=== PATIENT | male | born 1995 | race Hispanic/Latino ===

== ENCOUNTER 2021-03-24 06:47 | Emergency (ER) | payer SELFPAY ==
--- NOTE | 2021-03-24 07:13 | EDPHYS ---
Physician Documentation [facility] Name: Efren Ford Age: 25 yrs Sex: Male : 1995 Arrival Date: 03/24/2021 Time: 06:52 Bed 9 Private MD: ED Physician Lisbeth Leblanc HPI: 03/24 07:11 This 25 yrs old Male presents to ER via Ambulatory with complaints of Fever, ma2 Headache, Congestion. 07:11 The patient reports fever, not measured (subjective). Onset: The symptoms/episode ma2 began/occurred gradually, 2 day(s) ago. Associated signs and symptoms: Pertinent negatives: altered mental status, chest pain, chills, cough, myalgias, runny nose, sinus drainage. Severity of symptoms: At their worst the symptoms were mild in the emergency department the symptoms are unchanged. Historical: - Allergies: 06:59 No Known Allergies; ss - Home Meds: 06:59 None [Active]; ss - PMHx: 06:59 None; ss - PSHx: 06:59 None; ss - Immunization history:: Client reports receiving the 2nd dose of the Covid vaccine, Client reports having NOT received the Covid vaccine. - Social history:: Smoking status: Patient reports the use of cigarette tobacco products, cigars. - Family history:: not pertinent. ROS: 07:11 Constitutional: Negative for fever, chills, and weight loss. ma2 07:11 All other systems are negative. Exam: 07:11 Constitutional: This is a well developed, well nourished patient who is awake, alert, ma2 and in no acute distress. Eyes: Pupils equal round and reactive to light, extra-ocular motions intact. Lids and lashes normal. Conjunctiva and sclera are non-icteric and not injected. Cornea within normal limits. Periorbital areas with no swelling, redness, or edema. ENT: Nares patent. No nasal discharge, no septal abnormalities noted. Tympanic membranes are normal and external auditory canals are clear. Oropharynx with no redness, swelling, or masses, exudates, or evidence of obstruction, uvula midline. Mucous membranes moist. Chest/axilla: Normal chest wall appearance and motion. Nontender with no deformity. No lesions are appreciated. Cardiovascular: Regular rate and rhythm with a normal S1 and S2. No gallops, murmurs, or rubs. Normal PMI, no JVD. No pulse deficits. Respiratory: Lungs have equal breath sounds bilaterally, clear to auscultation and percussion. No rales, rhonchi or wheezes noted. No increased work of breathing, no retractions or nasal flaring. Abdomen/GI: Soft, non-tender, with normal bowel sounds. No distension or tympany. No guarding or rebound. No evidence of tenderness throughout. Skin: Warm, dry with normal turgor. Normal color with no rashes, no lesions, and no evidence of cellulitis. MS/ Extremity: Pulses equal, no cyanosis. Neurovascular intact. Full, normal range of motion. Neuro: Awake and alert, GCS 15, oriented to person, place, time, and situation. Cranial nerves II-XII grossly intact. Motor strength 5/5 in all extremities. Sensory grossly intact. Cerebellar exam normal. Normal gait. Vital Signs: 06:58 BP 110 / 70; Pulse 96; Resp 15; Temp 99.8(O); Pulse Ox 98% on R/A; Weight 54.43 kg; ss Height 5 ft. 5 in. (165.10 cm); Pain 0/10; 06:58 Body Mass Index 19.97 (54.43 kg, 165.10 cm) ss MDM: 07:10 Patient medically screened. jr8 07:11 Differential diagnosis: URI, bronchitis, gastroenteritis. Data reviewed: vital signs, ma2 nurses notes, EMS record. Counseling: I had a detailed discussion with the patient and/or guardian regarding: the historical points, exam findings, and any diagnostic results supporting the discharge/admit diagnosis, the presence of at least one elevated blood pressure reading (>120/80) during this emergency department visit, lab results, radiology results, the need for outpatient follow up. Response to treatment: the patient's symptoms have markedly improved after treatment. 03/24 07:05 Order name: COVID-19/FLU A+B (Document "Date of Onset" if Symptomatic) ss Administered Medications: No medications were administered Disposition Summary: 03/24/21 07:12 Discharge Ordered Location: Home ma2 Condition: Stable ma2 Diagnosis - Cough ma2 Followup: ma2 - With: Private Physician - When: Tomorrow - Reason: Continuance of care Discharge Instructions: - Discharge Summary Sheet ma2 - Cough, Adult, [id number] ma2 Forms: - Medication Reconciliation Form ma2 - Thank You Letter ma2 - Antibiotic Education ma2 - Prescription Opioid Use ma2 Prescriptions: - Diclofenac Sodium 75 mg Oral Tablet Sustained Release - take 1 tablet by ORAL route 2 times per day; 30 tablet; Refills: 0, Product ma2 Selection Permitted - Zithromax Z-Luis Carlos 250 mg Oral Tablet - take 1 tablet by ORAL route as directed for 5 days Day 1 - take two (2) tablets ma2 one time. Day 2, 3, 4 , 5 take one (1) tablet once daily.; 6 tablet; Refills: 0, Product Selection Permitted - Medrol (Luis Carlos) 4 mg Oral Tablets, Dose Pack - take 1 tablet by ORAL route as directed - follow package instructions; 1 ma2 packet; Refills: 0, Product Selection Permitted Signatures: Dispatcher [employer] Laxmi Santos RN RN ss Roszak, Josh, PA PA jr8 Lisbeth Leblanc MD MD ma2
--- NOTE | 2021-03-24 07:13 | ER ---
Nurse's Notes [facility] Name: Efren Ford Age: 25 yrs Sex: Male : 1995 Arrival Date: 03/24/2021 Time: 06:52 Bed 9 Private MD: Diagnosis: Cough Presentation: 03/24 06:58 Chief complaint: Patient states: cough, runny nose, congestion, runny nose and headache ss that began 2 days ago. Coronavirus screen: Client presents with at least one sign or symptom that may indicate coronavirus-19. Standard/surgical mask placed on the client. Provider contacted for isolation considerations. Ebola Screen: Patient denies exposure to infectious person. Patient denies travel to an Ebola-affected area in the 21 days before illness onset. Initial Sepsis Screen: Does the patient meet any 2 criteria? No. Patient's initial sepsis screen is negative. Does the patient have a suspected source of infection? No. Patient's initial sepsis screen is negative. Risk Assessment: Do you want to hurt yourself or someone else? Patient reports no desire to harm self or others. Onset of symptoms was March 23, 2021. 06:58 Method Of Arrival: Ambulatory ss 06:58 Acuity: GINNY 4 ss Historical: - Allergies: 06:59 No Known Allergies; ss - Home Meds: 06:59 None [Active]; ss - PMHx: 06:59 None; ss - PSHx: 06:59 None; ss - Immunization history:: Client reports receiving the 2nd dose of the Covid vaccine, Client reports having NOT received the Covid vaccine. - Social history:: Smoking status: Patient reports the use of cigarette tobacco products, cigars. - Family history:: not pertinent. Screenin:19 Abuse screen: Denies threats or abuse. Denies injuries from another. Nutritional ss screening: No deficits noted. Tuberculosis screening: Never had TB. Fall Risk None identified. Assessment: 06:58 General: Appears in no apparent distress. comfortable, Behavior is calm, cooperative, ss Denies fever, feeling ill, fatigue, chills. Neuro: Level of Consciousness is awake, alert, obeys commands, Oriented to person, place, time, situation. Neuro: Reports headache. Cardiovascular: Capillary refill < 3 seconds is brisk in bilateral fingers. Respiratory: Airway is patent Respiratory effort is even, unlabored, Respiratory pattern is regular, symmetrical, Breath sounds are clear bilaterally. Respiratory: Reports cough that is. GI: Patient currently denies diarrhea, nausea, vomiting. : No signs and/or symptoms were reported regarding the genitourinary system. EENT: Reports nasal congestion nasal discharge. Derm: Skin is intact, is healthy with good turgor, Skin is dry, Skin is pink, warm \T\ dry. normal. 07:19 Reassessment: Patient appears in no apparent distress at this time. Patient and/or ss family updated on plan of care and expected duration. Pain level reassessed. Patient is alert, oriented x 3, equal unlabored respirations, skin warm/dry/pink. Vital Signs: 06:58 BP 110 / 70; Pulse 96; Resp 15; Temp 99.8(O); Pulse Ox 98% on R/A; Weight 54.43 kg; ss Height 5 ft. 5 in. (165.10 cm); Pain 0/10; 06:58 Body Mass Index 19.97 (54.43 kg, 165.10 cm) ED Course: 06:52 Patient arrived in ED. ja2 06:59 Triage completed. ss 06:59 Arm band placed on left wrist. ss 07:06 Laxmi Schwab RN is Primary Nurse. 07:10 Wilbert Mitchell PA is PHCP. jr8 07:10 Jason Pinzon MD is Attending Physician. jr8 07:11 Attending Physician role handed off by Jason Pinzon MD ma2 07:11 Lisbeth Leblanc MD is Attending Physician. ma2 07:19 Patient has correct armband on for positive identification. Bed in low position. Call ss light in reach. 07:20 No provider procedures requiring assistance completed. Patient did not have IV access ss during this emergency room visit. Administered Medications: No medications were administered Outcome: 07:12 Discharge ordered by . ma2 07:20 Discharged to home ambulatory. 07:20 Condition: good 07:20 Discharge instructions given to patient, Instructed on discharge instructions, follow up and referral plans. medication usage, Demonstrated understanding of instructions, follow-up care, Prescriptions given X 3. 07:21 Patient left the ED. Signatures: Laxmi Schwab RN RN Wilbert Mitchell PA PA Lisbeth Anguiano MD MD ma2 Gem Gilbert
[2021-03-24 07:27] VITALS: BP 110/70; TEMP 99.8; O2SAT 98
[2021-03-24 09:02] LABS: SARS-COV-2 RT PCR NEGATIVE (NEGATIVE)
== END 2021-03-24 07:21 | disposition home or self-care (01) ==
LOC: ER 06:47
DX: J10.1 Influenza due to other identified influenza virus with other respiratory manifestations (principal); Z20.822 Contact with and (suspected) exposure to COVID-19; Z72.0 Tobacco use
CPT/HCPCS: 0240U; 99282

== ENCOUNTER 2022-06-17 17:38 | Emergency (ER) | payer BC ==
[2022-06-17] MEDS ORDERED: IBUPROFEN 400 MG TAB ONE (18:20)
[2022-06-17] MEDS ORDERED: IBUPROFEN 200 MG TAB PO ONE (18:20)
--- NOTE | 2022-06-17 20:01 | RAD REPORT ---
EXAM DESCRIPTION: RAD - Shoulder Left 2 View - 06/17/2022 7:28 pm CLINICAL HISTORY: PAIN COMPARISON: No comparisons TECHNIQUE: Internal and external rotation views of the left shoulder were obtained. FINDINGS: There is no fracture or dislocation. AC joint is normal in appearance. No acute or suspici ous findings. IMPRESSION: Negative two-view left shoulder examination.
--- NOTE | 2022-06-17 20:01 | RAD REPORT ---
EXAM DESCRIPTION: RAD - Ribs Left - 06/17/2022 7:28 pm CLINICAL HISTORY: PAIN COMPARISON: CHEST SINGLE VIEW dated 05/02/2013 TECHNIQUE: Left ribs, 2 views. FINDINGS: No displaced rib fracture is evident. No aggressive rib lesion. No underlying pneumothorax, effusion, infiltrate or pulmonary contusion. IMPRESSION: Negative left rib series.
--- NOTE | 2022-06-17 20:04 | EDPHYS ---
Physician Documentation [facility] Name: Efren Ford Age: 26 yrs Sex: Male : 1995 Arrival Date: 06/17/2022 Time: 17:42 Bed 11 Private MD: ED Physician Harshal Garcia Historical: - Allergies: 06/17 17:51 No Known Allergies; ll1 - PMHx: 17:51 None; ll1 - PSHx: 17:51 None; ll1 - Immunization history:: Client reports having NOT received the Covid vaccine. - Social history:: Smoking status: Patient reports the use of cigarette tobacco products, smokes one-half pack cigarettes per day. Vital Signs: 17:52 BP 120 / 80; Pulse 78; Resp 16; Temp 98.7; Pulse Ox 98% ; Weight 49.9 kg; Height 5 ft. ll1 5 in. ; Pain 7/10; 17:52 Body Mass Index 18.30 (49.90 kg, 165.1 cm) ll1 17:52 Pain Scale: Adult ll1 MDM: 17:56 Patient medically screened. cp 06/17 19:54 Order name: Sling cp 06/17 18:00 Order name: XRAY Shoulder LEFT 2 view cp 06/17 18:00 Order name: XRAY Ribs LEFT cp Administered Medications: 18:17 Not Given (Patient Refused): Ibuprofen PO 600 mg PO once ll1 Disposition Summary: 06/17/22 20:03 Discharge Ordered Location: Home cp Problem: new cp Symptoms: are unchanged cp Condition: Stable cp Diagnosis - Strain of muscle and tendon of front wall of thorax, initial encounter cp Followup: cp - With: Private Physician - When: 2 - 3 days - Reason: Worsening of condition Discharge Instructions: - Discharge Summary Sheet cp - Muscle Strain cp - RICE Therapy for Routine Care of Injuries cp - Thoracic Strain cp Forms: - Medication Reconciliation Form cp - Thank You Letter cp - Antibiotic Education cp - Prescription Opioid Use cp Prescriptions: - Ibuprofen 600 mg Oral Tablet - take 1 tablet by ORAL route every 8 hours As needed take with food; 30 tablet; cp Refills: 0, Product Selection Permitted Signatures: Dispatcher [employer] EDMA Barry Lagos PA PA cp Lewis, Lynsay RN RN ll1
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
[2022-06-18 00:51] VITALS: BP 120/80; TEMP 98.7; O2SAT 98
== END 2022-06-17 20:32 | disposition home or self-care (01) ==
LOC: ER 17:38
DX: S20.212A Contusion of left front wall of thorax, initial encounter (principal); F17.210 Nicotine dependence, cigarettes, uncomplicated
CPT/HCPCS: 99282

== ENCOUNTER 2022-09-08 13:27 | Emergency (ER) | payer BC, SELFPAY ==
--- OUTSIDE RECORDS SUMMARY | 2022-09-08 13:30 | XMS REPORT | Continuity of Care Document ---
:1995 Author Organization [facility] t Address [address] [place] [address] Care Team Providers Name Role Phone Pcp, Patient Does Not Have A Primary Care Physician [id number] ZEESHAN COHEN Attending Clinician Unavailable Zeeshan Cohen MD Attending Clinician Payers Payer Name Policy Type Policy Number Effective Date Expiration Date S ource [facility] - [id number] 2021 00:00:00 OUT OF STATE Problems This patient has no known problems. Allergies, Adverse Reactions, Alerts Allergy Allergy Status Severity Reaction(s) Onset Inactive Treating Comm ents Source Name Type Date Date Clinician NO KNOWN Drug Active Univers ALLERGIE Class ity of S [facility] Social History Social Habit Start Date Stop Date Quantity Comments Source History of Cigarette Smoker Universi ty of tobacco use [facility] Exposure to 2022-07-29 2022-08-08 Not sure University of SARS-CoV-2 00:00:00 12:55:00 [facility] (event) [place] Tobacco use and 2022-08-08 2022-08-08 Smokeless tobacco Un iversity of exposure 00:00:00 00:00:00 non-user [facility] Sex Assigned At [birth year] Universit y of 00:00:00 00:00:00 [facility] Smoking Status Start Date Stop Date Source Smokes tobacco daily 2022-08-08 00:00:00 [facility] Medications This patient has no known medications. Vital Signs Vital Name Observation Time Observation Value Comments Source Systolic blood 2022-08-08 18:08:00 106 mm[Hg] Univer sity of pressure [facility] Diastolic blood 2022-08-08 18:08:00 70 mm[Hg] Unive rsity of pressure [facility] Heart rate 2022-08-08 18:08:00 68 /min Universi [facility] Body temperature 2022-08-08 18:08:00 36.78 [facility] Respiratory rate 2022-08-08 18:08:00 20 /[facility] height 2022-08-08 18:08:00 165.1 cm [facility] Body weight 2022-08-08 18:08:00 48.626 kg [facility] BMI 2022-08-08 18:08:00 17.84 kg/m2 [facility] Oxygen saturation in 2022-08-08 18:08:00 99 /min [facility] Arterial blood by [facility] Pulse oximetry Branch Procedures This patient has no known procedures. Encounters Start End Encounter Admission Attending Care Care Encounter Source Date/Time Date/Time Type Type Clinicians Facility Department ID 2022-08-08 2022-08-08 Outpatient R [facility] [id number] [facility] 13:00:00 14:05:45 ZEESHAN negron [facility] 2022-08-08 2022-08-08 Office [facility] [id number] [facility] 13:00:00 14:05:45 Visit Zeeshan STRONG [id number] i ty of [place] [id number] [facility] [id number] Id dical NAL [address] BUILDING Results This patient has no known results.
--- NOTE | 2022-09-08 15:22 | ER ---
Nurse's Notes [facility] Name: Efren Ford Age: 27 yrs Sex: Male : 1995 Arrival Date: 09/08/2022 Time: 13:27 Bed Treatment Private MD: Diagnosis: Impacted cerumen, right ear Presentation: 09/08 13:31 Chief complaint: Patient states: RIGHT EAR PAIN x1.5 DAY. Coronavirus screen: At this bp time, the client does not indicate any symptoms associated with coronavirus-19. Ebola Screen: No symptoms or risks identified at this time. Initial Sepsis Screen: Does the patient meet any 2 criteria? No. Patient's initial sepsis screen is negative. Does the patient have a suspected source of infection? No. Patient's initial sepsis screen is negative. Risk Assessment: Do you want to hurt yourself or someone else? Patient reports no desire to harm self or others. Onset of symptoms is unknown. 13:31 Method Of Arrival: [employer] bp 13:31 Acuity: GINNY 4 bp Triage Assessment: 13:32 General: Appears uncomfortable, Behavior is cooperative, appropriate for age. Pain: bp Complains of pain in right ear. EENT: Reports pain in right ear. Neuro: No deficits noted. Cardiovascular: No deficits noted. Respiratory: No deficits noted. GI: No signs and/or symptoms were reported involving the gastrointestinal system. : No signs and/or symptoms were reported regarding the genitourinary system. Derm: No deficits noted. Musculoskeletal: No deficits noted. Historical: - Allergies: 13:32 No Known Allergies; bp - Home Meds: 13:32 None [Active]; bp - PMHx: 13:32 None; bp - Immunization history:: Adult Immunizations up to date. - Social history:: Smoking status: . Screenin:[address] [facility] ED Fall Risk Assessment (Adult) History of falling in the last 3 months, mb9 including since admission No falls in past 3 months (0 pts) Confusion or Disorientation No (0 pts) Intoxicated or Sedated No (0 pts) Impaired Gait No (0 pts) Mobility Assist Device Used No (0 pt) Altered Elimination No (0 pt) Score/Fall Risk Level 0 - 2 = Low Risk Oriented to surroundings, Maintained a safe environment, Educated pt \T\ family on fall prevention, incl call for assistance when getting out of bed. Abuse screen: Denies threats or abuse. Nutritional screening: No deficits noted. Tuberculosis screening: No symptoms or risk factors identified. Assessment: 15:26 Reassessment: see triage assessment. mb9 Vital Signs: 13:31 BP 121 / 67; Pulse 75; Resp 16; Temp 98; Pulse Ox 99% ; bp ED Course: 13:31 Patient arrived in ED. bp 13:32 Triage completed. bp 13:33 Arm band placed on. bp 14:07 Marisela Goldstein FNP-C [facility] kb 14:07 Jason Pinzon MD is Attending Physician. kb 15:26 No provider procedures requiring assistance completed. Patient did not have IV access mb9 during this emergency room visit. Administered Medications: No medications were administered Outcome: 15:22 Discharge ordered by MD. kb 15:26 Discharged to [employer] mb9 15:26 Condition: stable 15:26 Discharge instructions given to patient, Instructed on discharge instructions, follow up and referral plans. Demonstrated understanding of instructions, follow-up care. 15:27 Patient left the ED. mb9 Signatures: Marisela Goldstein FNP-C FNP-Ckb Peltier, Brian, RN RN Kendra Soares RN RN [id number]
--- NOTE | 2022-09-08 15:22 | EDPHYS ---
Physician Documentation [facility] Name: Efren Ford Age: 27 yrs Sex: Male : 1995 Arrival Date: 09/08/2022 Time: 13:27 Bed Treatment Private MD: ED Physician Jason Pinzon HPI: 09/08 13:43 This 27 yrs old Male presents to ER via [employer] with complaints of Ear kb Pain. 13:43 The patient presents with a foreign body sensation, pain. The complaints affect the kb right ear. Onset: The symptoms/episode began/occurred yesterday. Modifying factors: The symptoms are alleviated by nothing, the symptoms are aggravated by nothing. Associated signs and symptoms: The patient has no apparent associated signs or symptoms. Severity of symptoms: At their worst the symptoms were moderate in the emergency department the symptoms are unchanged. The patient has not experienced similar symptoms in the past. The patient has not recently seen a physician. Historical: - Allergies: 13:32 No Known Allergies; bp - Home Meds: 13:32 None [Active]; bp - PMHx: 13:32 None; bp - Immunization history:: Adult Immunizations up to date. - Social history:: Smoking status: . ROS: 13:43 Constitutional: Negative for fever, chills, and weight loss. kb 13:43 ENT: Positive for ear pain, foreign body sensation. 13:43 All other systems are negative. Exam: 13:43 Constitutional: This is a well developed, well nourished patient who is awake, alert, kb and in no acute distress. Head/Face: Normocephalic, atraumatic. Cardiovascular: Regular rate and rhythm with a normal S1 and S2. No gallops, murmurs, or rubs. No pulse deficits. Respiratory: Respirations even and unlabored. No increased work of breathing. Talking in full sentences Skin: Warm, dry with normal turgor. Normal color. MS/ Extremity: Pulses equal, no cyanosis. Neurovascular intact. Full, normal range of motion. Neuro: Awake and alert, GCS 15, oriented to person, place, time, and situation. Moves all extremities. Normal gait. 13:43 ENT: External ear(s): are unremarkable, Ear canal(s): cerumen impaction, that is moderate, that is hard, occluding the right ear canal, foreign body, an insect, in the right external ear canal. Vital Signs: 13:31 BP 121 / 67; Pulse 75; Resp 16; Temp 98; Pulse Ox 99% ; bp MDM: 13:33 Patient medically screened. kb 13:44 Differential diagnosis: otitis media, otitis externa, ruptured TM, foreign body, acute kb otalgia, cerumen impaction. Data reviewed: vital signs, nurses notes. 15:21 Counseling: I had a detailed discussion with the patient and/or guardian regarding: the kb historical points, exam findings, and any diagnostic results supporting the discharge/admit diagnosis, the need for outpatient follow up, a family practitioner, to return to the emergency department if symptoms worsen or persist or if there are any questions or concerns that arise at home. 15:22 ED course: cerumen removed from right ear canal. . kb 09/08 14:06 Order name: [facility]. Order: irrigate right ear; Complete Time: 14:45 kb Administered Medications: No medications were administered Disposition: 16:38 Co-signature as Attending Physician, Jason Pinzon MD I reviewed the patient's care rn provided by the Advanced Practice Provider and agree with the diagnosis and treatment plan. Disposition Summary: 09/08/22 15:22 Discharge Ordered Condition: Stable kb Location: [employer](09/08/22 15:22) kb Diagnosis - Impacted cerumen, right ear kb Followup: kb - With: Emergency Department - When: As needed - Reason: Worsening of condition Followup: kb - With: Private Physician - When: 2 - 3 days - Reason: Recheck today's complaints, Continuance of care, Re-evaluation by your physician Discharge Instructions: - Discharge Summary Sheet kb - Earwax Buildup, Adult kb Forms: - Medication Reconciliation Form kb - Thank You Letter kb - Antibiotic Education kb - Prescription Opioid Use kb Signatures: Marisela Goldstein, COUNTERPERSON-C COUNTERPERSON-Haob Jason Pinzon MD MD rn Peltier, Brian, RN RN bp Corrections: (The following items were deleted from the chart) 15:22 15:22 Home kb kb 15:23 13:43 ENT: External ear(s): are unremarkable, Ear canal(s): foreign body, an insect, in kb the right external ear canal, kb
[2022-09-08 15:43] VITALS: BP 121/67; TEMP 98; O2SAT 99
== END 2022-09-08 15:27 ==
LOC: ER 13:27
DX: H61.21 Impacted cerumen, right ear (principal)
CPT/HCPCS: 99282

== ENCOUNTER 2022-11-15 07:25 | Emergency (ER) | payer SELFPAY ==
--- OUTSIDE RECORDS SUMMARY | 2022-11-15 07:28 | XMS REPORT | Continuity of Care Document ---
:1995 Author Organization [facility] t Address [address] [place] [address] Care Team Providers Name Role Phone Pcp, Patient Does Not Have A Primary Care Physician [id number] ZEESHAN COHEN Attending Clinician Unavailable Zeeshan Cohen MD Attending Clinician Payers Payer Name Policy Type Policy Number Effective Date Expiration Date S ource [facility] - [id number] 2021 00:00:00 OUT OF STATE Problems This patient has no known problems. Allergies, Adverse Reactions, Alerts Allergy Allergy Status Severity Reaction(s) Onset Inactive Treating Comm ents Source Name Type Date Date Clinician NO KNOWN Drug Active Univers ALLERGIE Class ity of S [facility] Social History Social Habit Start Date Stop Date Quantity Comments Source History of Cigarette Smoker Universi ty of tobacco use [facility] Exposure to 2022-07-29 2022-08-08 Not sure University of SARS-CoV-2 00:00:00 12:55:00 [facility] (event) [place] Tobacco use and 2022-08-08 2022-08-08 Smokeless tobacco Un iversity of exposure 00:00:00 00:00:00 non-user [facility] Sex Assigned At [birth year] Universit y of 00:00:00 00:00:00 [facility] Smoking Status Start Date Stop Date Source Smokes tobacco daily 2022-08-08 00:00:00 [facility] Medications This patient has no known medications. Vital Signs Vital Name Observation Time Observation Value Comments Source Systolic blood 2022-08-08 18:08:00 106 mm[Hg] Univer sity of pressure [facility] Diastolic blood 2022-08-08 18:08:00 70 mm[Hg] Unive rsity of pressure [facility] Heart rate 2022-08-08 18:08:00 68 /min Universi [facility] Body temperature 2022-08-08 18:08:00 36.78 [facility] Respiratory rate 2022-08-08 18:08:00 20 /[facility] height 2022-08-08 18:08:00 165.1 cm [facility] Body weight 2022-08-08 18:08:00 48.626 kg [facility] BMI 2022-08-08 18:08:00 17.84 kg/m2 [facility] Oxygen saturation in 2022-08-08 18:08:00 99 /min [facility] Arterial blood by [facility] Pulse oximetry Branch Procedures This patient has no known procedures. Encounters Start End Encounter Admission Attending Care Care Encounter Source Date/Time Date/Time Type Type Clinicians Facility Department ID 2022-08-08 2022-08-08 Outpatient R VICKI [facility] [id number] [facility] 13:00:00 14:05:45 ZEESHAN negron [facility] 2022-08-08 2022-08-08 [facility] [id number] [facility] 13:00:00 14:05:45 Visit Zeeshan STRONG [id number] i ty of [place]END[place] [id number] [facility] [id number] Mi dical NAL [address] BUILDING Results This patient has no known results.
[2022-11-15] MEDS ORDERED: NA CHLORIDE 0.9% 1,000 ML ONE (07:58)
[2022-11-15 08:14] LABS: Absolute Lymphocytes (CBC) 3.9 K/uL (0.7-4.9); Hematocrit 49.1 % (39.6-49.0); Lymphocytes % 46.8 % (15.3-44.8); MCV 95.7 fL (80-100); MPV 7.7 fL (7.6-11.3); Platelets 353 thou/uL (152-406); RBC Red Blood Cell Count 5.13 M/uL (4.33-5.43)
[2022-11-15 08:26] LABS: Specific Gravity 1.022 (1.005-1.030); Urine Bilirubin NEGATIVE (Negative); Urine Blood Negative (Negative); Urine Clarity Clear (Clear); Urine Color Light-Yellow (Yellow); Urine Glucose NEGATIVE (Negative); Urine Protein NEGATIVE (Negative); Urine Urobilinogen Normal (Normal); Urine pH 6.5 (5.0-7.0)
--- NOTE | 2022-11-15 09:19 | RAD REPORT ---
EXAM DESCRIPTION: CT - Abdomen Pelvis W Contrast - 11/15/2022 8:37 am CLINICAL HISTORY: ABD PAIN COMPARISON: No comparisons TECHNIQUE: Thin cut axial CT imaging of the abdomen and pelvis was performed following intravenous a dministration of 100 mL Isovue 300. Multiplanar reformats were generated and reviewed. All CT scans are performed using dose optimization technique as appropriate and may include automated exposure control or mA/KV adjustment according to patient size. FINDINGS: No suspicious findings in the lung bases. The liver, spleen, adrenal glands, and pancreas show no suspicious findings. Gallbladder and biliary tree are also without suspicious finding. Symmetric renal function is seen with no hydronephrosis or suspicious renal mass. No dilated bowel loops or bowel wall thickening. Appendix is not discretely visualized, although pauc ity of fat and some nondistended small bowel loops around the cecum limit evaluation. Trace free flui d in the pelvis. No free air, fluid collections, or inflammatory stranding. No hernia, mass or bulky lymphadenopathy. The urinary bladder is without significant finding. No suspicious bony findings. IMPRESSION: Trace free fluid in the pelvis, without a focal acute intra-abdominal process.
--- NOTE | 2022-11-15 09:24 | RAD REPORT ---
EXAM DESCRIPTION: US - Scrotum Testicles - 11/15/2022 9:01 am CLINICAL HISTORY: PAIN COMPARISON: No comparisons TECHNIQUE: Sonographic grayscale and color flow images of the scrotum were obtained. FINDINGS: The right testicle measures 4.5 x 2.2 x 3.0 cm. No intratesticular masses or evidence of t esticular torsion. The left testicle measures 4.2 x 2.9 x 2.2 cm. No intratesticular masses or evidence of testicular to rsion. Both epididymides are normal in size and appearance. Background mild engorgement of the left palatin i form venous plexus. No pathologic fluid collections. IMPRESSION: Small left varicocele. No testicular or epididymal abnormalities.
--- NOTE | 2022-11-15 09:30 | EDPHYS ---
Physician Documentation [facility] Name: Efren Ford Age: 27 yrs Sex: Male : 1995 Arrival Date: 11/15/2022 Time: 07:25 Bed 15 Private MD: ALBA Physician Barry Crews HPI: 11/15 08:35 This 27 yrs old Male presents to ER via Ambulatory with complaints of Hernia. dao 08:35 The patient presents with abdominal pain in the left lower quadrant. Onset: The dao symptoms/episode began/occurred 2 day(s) ago. The patient presents with tenderness, that is mild, of the left testicle. Onset: The symptoms/episode began/occurred 2 day(s) ago. Modifying factors: The symptoms are alleviated by nothing, the symptoms are aggravated by nothing. The symptoms do not radiate. Modifying factors: The symptoms are alleviated by nothing, the symptoms are aggravated by nothing. Historical: - Allergies: 07:39 No Known Allergies; bp - Home Meds: 07:39 None [Active]; bp - PMHx: 07:39 None; bp - Immunization history:: Adult Immunizations up to date. - Social history:: Smoking status: unknown. - Family history:: not pertinent. ROS: 08:35 Constitutional: Negative for fever, chills, and weight loss, Eyes: Negative for injury, dao pain, redness, and discharge, ENT: Negative for injury, pain, and discharge, Neck: Negative for injury, pain, and swelling, Cardiovascular: Negative for chest pain, palpitations, and edema, Respiratory: Negative for shortness of breath, cough, wheezing, and pleuritic chest pain, Back: Negative for injury and pain, : Negative for injury, bleeding, discharge, and swelling, MS/Extremity: Negative for injury and deformity, Skin: Negative for injury, rash, and discoloration, Neuro: Negative for headache, weakness, numbness, tingling, and seizure, Psych: Negative for depression, anxiety, suicide ideation, homicidal ideation, and hallucinations, Allergy/Immunology: Negative for hives, rash, and allergies, Endocrine: Negative for neck swelling, polydipsia, polyuria, polyphagia, and marked weight changes, Hematologic/Lymphatic: Negative for swollen nodes, abnormal bleeding, and unusual bruising. 08:35 Abdomen/GI: Positive for abdominal cramps, of the left lower quadrant. 08:35 : Positive for testicular pain of the left testicle. Exam: 08:35 Constitutional: This is a well developed, well nourished patient who is awake, alert, dao and in no acute distress. Head/Face: Normocephalic, atraumatic. Eyes: Pupils equal round and reactive to light, extra-ocular motions intact. Lids and lashes normal. Conjunctiva and sclera are non-icteric and not injected. Cornea within normal limits. Periorbital areas with no swelling, redness, or edema. ENT: Nares patent. No nasal discharge, no septal abnormalities noted. Tympanic membranes are normal and external auditory canals are clear. Oropharynx with no redness, swelling, or masses, exudates, or evidence of obstruction, uvula midline. Mucous membranes moist. Neck: Trachea midline, no thyromegaly or masses palpated, and no cervical lymphadenopathy. Supple, full range of motion without nuchal rigidity, or vertebral point tenderness. No Meningismus. Chest/axilla: Normal chest wall appearance and motion. Nontender with no deformity. No lesions are appreciated. Cardiovascular: Regular rate and rhythm with a normal S1 and S2. No gallops, murmurs, or rubs. Normal PMI, no JVD. No pulse deficits. Respiratory: Lungs have equal breath sounds bilaterally, clear to auscultation and percussion. No rales, rhonchi or wheezes noted. No increased work of breathing, no retractions or nasal flaring. Abdomen/GI: Soft, non-tender, with normal bowel sounds. No distension or tympany. No guarding or rebound. No evidence of tenderness throughout. Back: No spinal tenderness. No costovertebral tenderness. Full range of motion. Male : Normal genitalia with no discharge or lesions. Skin: Warm, dry with normal turgor. Normal color with no rashes, no lesions, and no evidence of cellulitis. MS/ Extremity: Pulses equal, no cyanosis. Neurovascular intact. Full, normal range of motion. Neuro: Awake and alert, GCS 15, oriented to person, place, time, and situation. Cranial nerves II-XII grossly intact. Motor strength 5/5 in all extremities. Sensory grossly intact. Cerebellar exam normal. Normal gait. Psych: Awake, alert, with orientation to person, place and time. Behavior, mood, and affect are within normal limits. 08:35 : Male external genitalia: normal, Circumcision noted. Bladder: is normal, Rectal exam: is not applicable, Sexual behavior: the patient is sexually active, and reports a single partner. Vital Signs: 07:38 BP 144 / 101; Pulse 70; Resp 16; Temp 98; Pulse Ox 99% ; Weight 49.9 kg; Height 5 ft. 5 bp in. ; 08:17 BP 125 / 79; Pulse 63; Resp 17 S; Pulse Ox 99% on R/A; kc6 09:29 BP 117 / 79; Pulse 59; Resp 17 S; Pulse Ox 100% on R/A; kc6 07:38 Body Mass Index 18.30 (49.90 kg, 165.1 cm) bp MDM: 07:28 Patient medically screened. [facility] 08:39 Data reviewed: vital signs, nurses notes, lab test result(s), radiologic studies, CT dao scan, ultrasound. Consideration of Admission/Observation Escalation of care including admission/observation considered. I considered the following discharge prescriptions or medication management in the emergency department Medications were administered in the Emergency Department. See MAR. Test considered but Not performed: Ultrasound no abd usg. Care significantly affected by the following chronic conditions: none, epididimytis. Counseling: I had a detailed discussion with the patient and/or guardian regarding the historical points, exam findings, and any diagnostic results supporting the discharge/admit diagnosis, lab results, radiology results, the need for outpatient follow up, for definitive care, a family practitioner, a urologist. 11/15 07:29 Order name: CBC with Diff; Complete Time: 08:31 [facility] 11/15 07:29 Order name: Comprehensive Metabolic Panel [facility] 11/15 07:29 Order name: Urinalysis w/ reflexes; Complete Time: 08:31 [facility] 11/15 07:29 Order name: CT Abd/Pelvis - IV Contrast Only [facility] 11/15 08:31 Order name: US Scrotum Testicles [facility] Administered Medications: 08:11 Drug: NS 0.9% IV 1000 ml Route: IV; Rate: 1 bolus; Site: left antecubital; kc6 09:45 Follow up: Response: No adverse reaction; IV Status: Completed infusion; IV Intake: kc6 1000ml Disposition Summary: 11/15/22 09:29 Discharge Ordered Location: Home dao Problem: new dao Symptoms: have improved dao Condition: Stable dao Diagnosis - Abdominal tenderness dao - Left testicular pain - small left varicocele dao Followup: dao - With: Private Physician - When: 2 - 3 days - Reason: Recheck today's complaints, Continuance of care, Re-evaluation by your physician Followup: dao - With: - When: 2 - 3 days - Reason: Recheck today's complaints, Continuance of care, Re-evaluation by your physician Discharge Instructions: - Discharge Summary Sheet dao - Abdominal Pain, Adult dao - Constipation, Adult dao - Varicocele dao - Constipation, Adult, [id number] dao - Abdominal Pain, Adult, [id number] dao Forms: - Medication Reconciliation Form dao - Thank You Letter dao - Antibiotic Education dao - Prescription Opioid Use dao - Patient Portal Instructions dao - Leadership Thank You Letter dao Prescriptions: - dicyclomine 20 mg Oral Tablet - take 1 tablet by ORAL route 4 times per day; 28 tablet; Refills: 0, Product dao Selection Permitted Signatures: Dispatcher [employer] Barry Lin MD MD cha Peltier, Brian, RN RN Elsi Meek RN RN kc6
--- NOTE | 2022-11-15 09:30 | ER ---
Nurse's Notes [facility] Name: Efren Ford Age: 27 yrs Sex: Male : 1995 Arrival Date: 11/15/2022 Time: 07:25 Bed 15 Private MD: Diagnosis: Abdominal tenderness;Left testicular pain-small left varicocele Presentation: 11/15 07:38 Chief complaint: Patient states: LEFT GROIN PAIN AND SWELLING x3 MONTHS. Coronavirus bp screen: At this time, the client does not indicate any symptoms associated with coronavirus-19. Ebola Screen: No symptoms or risks identified at this time. Initial Sepsis Screen: Does the patient meet any 2 criteria? No. Patient's initial sepsis screen is negative. Does the patient have a suspected source of infection? No. Patient's initial sepsis screen is negative. Risk Assessment: Do you want to hurt yourself or someone else? Patient reports no desire to harm self or others. Onset of symptoms is unknown. 07:38 Method Of Arrival: Ambulatory bp 07:38 Acuity: GINNY 3 bp Triage Assessment: 07:45 General: Appears uncomfortable, Behavior is calm, cooperative, appropriate for age. bp Pain: Complains of pain in left femoral area. EENT: No deficits noted. Neuro: No deficits noted. Cardiovascular: No deficits noted. Respiratory: No deficits noted. GI: No signs and/or symptoms were reported involving the gastrointestinal system. : Reports pain in left GROIN. Derm: No deficits noted. Musculoskeletal: No deficits noted. Historical: - Allergies: 07:39 No Known Allergies; bp - Home Meds: 07:39 None [Active]; bp - PMHx: 07:39 None; bp - Immunization history:: Adult Immunizations up to date. - Social history:: Smoking status: unknown. - Family history:: not pertinent. Screenin:45 [facility] ED Fall Risk Assessment (Adult) History of falling in the last 3 months, bp including since admission No falls in past 3 months (0 pts). Abuse screen: Denies threats or abuse. Denies injuries from another. Nutritional screening: No deficits noted. Tuberculosis screening: No symptoms or risk factors identified. Assessment: 07:45 General: SEE TRIAGE NOTE. bp 08:03 General: Appears in no apparent distress. uncomfortable, Behavior is calm, cooperative, kc6 appropriate for age. Pain: Complains of pain in left lower quadrant, left testicle Pain does not radiate. Pain currently is 7 out of 10 on a pain scale. Neuro: Level of Consciousness is awake, alert, obeys commands, Oriented to person, place, time, situation, Appropriate for age. Cardiovascular: Capillary refill < 3 seconds. Respiratory: Airway is patent Trachea midline Respiratory effort is even, unlabored, Respiratory pattern is regular, symmetrical. GI: Reports nausea, Patient currently denies diarrhea, vomiting. : No signs and/or symptoms were reported regarding the genitourinary system. EENT: No signs and/or symptoms were reported regarding the EENT system. Derm: No signs and/or symptoms reported regarding the dermatologic system. Skin is intact, is healthy with good turgor, Skin is pink, warm \T\ dry. Musculoskeletal: No signs and/or symptoms reported regarding the musculoskeletal system. Circulation, motion, and sensation intact. Capillary refill < 3 seconds, Range of motion: intact in all extremities. 09:29 Reassessment: Patient appears in no apparent distress at this time. No changes from kc6 previously documented assessment. Patient and/or family updated on plan of care and expected duration. Pain level reassessed. Patient is alert, oriented x 3, equal unlabored respirations, skin warm/dry/pink. 09:32 Reassessment: d/c pending CMP results. kc6 Vital Signs: 07:38 BP 144 / 101; Pulse 70; Resp 16; Temp 98; Pulse Ox 99% ; Weight 49.9 kg; Height 5 ft. 5 bp in. ; 08:17 BP 125 / 79; Pulse 63; Resp 17 S; Pulse Ox 99% on R/A; kc6 09:29 BP 117 / 79; Pulse 59; Resp 17 S; Pulse Ox 100% on R/A; kc6 07:38 Body Mass Index 18.30 (49.90 kg, 165.1 cm) bp ED Course: 07:27 Patient arrived in ED. rg4 07:28 Barry Crews MD is Attending Physician. dao 07:39 Triage completed. bp 07:39 Arm band placed on. bp 07:41 Elsi Murillo, BJORN is Primary Nurse. kc6 07:45 Patient has correct armband on for positive identification. Bed in low position. Call bp light in reach. Side rails up X2. 08:03 Inserted saline lock: 20 gauge in left antecubital area, using aseptic technique. aw1 08:03 Initial lab(s) drawn, by me, sent to lab. aw1 08:11 Urinalysis w/ reflexes Sent. kc6 08:39 CT Abd/Pelvis - IV Contrast Only In Process Unspecified. EDMS 09:03 US Scrotum Testicles In Process Unspecified. EDMS 09:27 Everton Lim MD is Referral Physician. [facility] 09:52 No provider procedures requiring assistance completed. IV discontinued, intact, kc6 bleeding controlled, No redness/swelling at site. Pressure dressing applied. Administered Medications: 08:11 Drug: NS 0.9% IV 1000 ml Route: IV; Rate: 1 bolus; Site: left antecubital; kc6 09:45 Follow up: Response: No adverse reaction; IV Status: Completed infusion; IV Intake: kc6 1000ml Medication: 09:53 VIS not applicable for this client. kc6 Intake: 09:45 IV: 1000ml; Total: 1000ml. kc6 Outcome: 09:29 Discharge ordered by . [facility] 09:52 Discharged to home ambulatory. kc6 09:52 Condition: good 09:52 Discharge instructions given to patient, Instructed on discharge instructions, follow up and referral plans. medication usage, Demonstrated understanding of instructions, follow-up care, medications, Prescriptions given X 1. 09:53 Patient left the ED. kc6 Signatures: Dispatcher [employer] EDBarry Suárez MD MD cha Garcia, Rubi rg4 Kolton Ortiz RN RN Elsi Meek RN RN kc6 Jackelyn Barrera aw1
[2022-11-15 09:48] LABS: Albumin 3.5 g/dL (3.4-5.0); Bilirubin Total 0.5 mg/dL (0.2-1.0); Protein, Total 6.5 g/dL (6.4-8.2)
[2022-11-15 10:02] VITALS: TEMP 98
[2022-11-15 10:05] VITALS: BP 117/79; O2SAT 100
== END 2022-11-15 09:53 | disposition home or self-care (01) ==
LOC: ER 07:25
DX: I86.1 Scrotal varices (principal)
CPT/HCPCS: 36415; 74177; 76870; 80053; 81003; 85025; 96360; 96361; 99284; J7030; Q9967

== ENCOUNTER 2023-02-13 07:49 | Emergency (ER) | payer OTHER, SELFPAY ==
--- OUTSIDE RECORDS SUMMARY | 2023-02-13 08:03 | XMS REPORT | Continuity of Care Document ---
:1995 Author Organization [facility] t Address [address] [facility] [address] [place] [address] Care Team Providers Name Role Phone PCP, PATIENT DOES NOT HAVE A Primary Care Physician UnavailSTEPHANIE Price Attending Clinician Unavailable ZEESHAN COHEN Attending Clinician Unavailable Zeeshan Cohen MD Attending Clinician Doctor Unassigned, [place] Attending Clinician Unavailable Payers Payer Name Policy Type Policy Number Effective Date Expiration Date S [facility] - [id number] 2021 00:00:00 OUT OF STATE Problems This patient has no known problems. Allergies, Adverse Reactions, Alerts Allergy Allergy Status Severity Reaction(s) Onset Inactive Treating Comm ents Source Name Type Date Date Clinician NO KNOWN Drug Active Univers ALLERGIE Class ity of S [facility] Social History Social Habit Start Date Stop Date Quantity Comments Source Sexual [facility] of tobacco Cigarette Smoker University of use [facility] History of Social 2022-12-25 2022-12-25 Univers ity of function 00:00:00 00:00:00 [facility] Exposure to 2022-07-29 2022-08-[address] [facility] SARS-CoV-2 (event) 00:00:00 12:55:00 [facility] Tobacco use and 2022-08-08 2022-08-08 Smokeless Universit y of exposure 00:00:00 00:00:00 tobacco non-user [facility] Sex Assigned At [birth year] Universit y of 00:00:00 00:00:00 [facility] Smoking Status Start Date Stop Date Source Smokes tobacco daily 2022-08-08 00:00:00 Univers ity of [facility] Medications Ordered Filled Start Stop Current Ordering Indication Dosage Frequency Signature Comments Components Source Medication Medication Date Date Medication? Clinician (SIG) Name Name gabapentin 2022-04 Yes [id number] 300mg Take 1 Univers 300 mg 1-14 capsule by ity of capsule 00:00: mouth in [place] 00 the Medical morning Branch and 1 capsule at noon and 1 capsule in the evening. tamsulosin 2022-04 Yes [id number] .4mg Take 1 Univers 0.4 mg 24 1-14 capsule by ity of hr capsule 00:00: mouth in [place] as 00 the Medical morning. Branch gabapentin 2022-04 Yes [id number] 300mg Take 1 Univers 300 mg 1-14 capsule by ity of capsule 00:00: mouth in [place] 00 the [facility] morning Branch and 1 capsule at noon and 1 capsule in the evening. tamsulosin 2022-04 Yes [id number] .4mg Take 1 Univers 0.4 mg 24 1-14 capsule by ity of hr capsule 00:00: mouth in [facility] as 00 the Medical morning. Branch gabapentin 2022- Yes [id number] 300mg Take 1 Univers 300 mg 9- 10-11 [id number] capsule by ity of capsule 00:00: 04:59 mouth in [place] 00 :00 the [facility] and 1 capsule at noon and 1 capsule in the evening. Do all this for 14 days. gabapentin 2022- Yes [id number] 300mg Take 1 Univers 300 mg 9-26 10-11 [id number] capsule by ity of capsule 00:00: 04:59 mouth in [place] 00 :00 the [facility] and 1 capsule at noon and 1 capsule in the evening. Do all this for 14 days. gabapentin 2022- Yes [id number] 300mg Take 1 Univers 300 mg 9-26 10-11 [id number] capsule by ity of capsule 00:00: 04:59 mouth in [place] 00 :00 the [facility] and 1 capsule at noon and 1 capsule in the evening. Do all this for 14 days. gabapentin 2022- Yes [id number] 300mg Take 1 Univers 300 mg 9-26 10-11 [id number] capsule by ity of capsule 00:00: 04:59 mouth in [place] 00 :00 the Medical morning Branch and 1 capsule at noon and 1 capsule in the evening. Do all this for 14 days. gabapentin 2022- Yes [id number] 300mg Take 1 Univers 300 mg 12-25- [id number] capsule by ity of capsule 00:00: 04:59 mouth in [place] 00 :00 the Medical morning Branch and 1 capsule at noon and 1 capsule in the evening. Do all this for 14 days. gabapentin 2022- Yes [id number] 300mg Take 1 Univers 300 mg 12-25- [id number] capsule by ity of capsule 00:00: 04:59 mouth in [place] 00 :00 the Medical morning Branch and 1 capsule at noon and 1 capsule in the evening. Do all this for 14 days. gabapentin 2022- Yes [id number] 300mg Take 1 Univers 300 mg 12-25 [id number] capsule by ity of capsule 00:00: 04:59 mouth in [place] 00 :00 the Medical morning Branch and 1 capsule at noon and 1 capsule in the evening. Do all this for 14 days. gabapentin 2022- Yes [id number] 300mg Take 1 Univers 300 mg 12-25 [id number] capsule by ity of capsule 00:00: 04:59 mouth in [place] 00 :00 the Medical morning Branch and 1 capsule at noon and 1 capsule in the evening. Do all this for 14 days. Vital Signs Vital Name Observation Time Observation Value Comments Source Systolic blood 2023-02-12 22:13:00 105 mm[Hg] Univer sity of pressure [facility] Diastolic blood 2023-02-12 22:13:00 66 mm[Hg] Unive rsity of [facility] Heart rate 2023-02-12 22:13:00 95 /min [facility] Respiratory rate 2023-02-12 22:13:00 18 /min [facility] height 2023-02-12 22:13:00 160 cm [facility] Body weight 2023-02-12 22:13:00 52.164 kg [facility] BMI 2023-02-12 22:13:00 20.37 kg/m2 [facility] Oxygen saturation in 2023-02-12 22:13:00 97 /min University of Arterial blood by [place] [facility] jack[facility] Pulse oximetry Branch Systolic blood 2022-12-25 15:14:00 130 mm[Hg] Univer sity of pressure [place] [facility] Diastolic blood 2022-12-25 15:14:00 88 mm[Hg] Unive rsity of pressure [place] [facility] Heart rate 2022-12-25 15:14:00 117 /min Universi ty of [place] [facility] Body temperature 2022-12-25 15:14:00 36.44 Julianna Univ ersity of [place] [facility] Respiratory rate 2022-12-25 15:14:00 18 /min Univ ersity of [place] [facility] Body height 2022-12-25 15:14:00 167.6 cm Universi ty of [place] [facility] Body weight 2022-12-25 15:14:00 51.393 kg Universi ty [facility] [place] [facility] BMI 2022-12-25 15:14:00 18.29 kg/m2 Universi ty of [place] [facility] Oxygen saturation in 2022-12-25 15:14:00 99 /min University of Arterial blood by [place] [facility] jacklyn Pulse oximetry Branch Systolic blood 2022-08-08 18:08:00 106 mm[Hg] Univer sity of pressure [place] [facility] Diastolic blood 2022-08-08 18:08:00 70 mm[Hg] Unive rsity of pressure [place] [facility] [place] Heart rate 2022-08-08 18:08:00 68 /min Universi ty of [place] [facility] Body temperature 2022-08-08 18:08:00 36.78 Julianna Univ ersity of [place] [facility] Respiratory rate 2022-08-08 18:08:00 20 /min Univ ersity of [place] [facility] Body height 2022-08-08 18:08:00 165.1 cm Universi ty [facility] [place] [facility] Body weight 2022-08-08 18:08:00 48.626 kg Universi ty [facility] [place] [facility] BMI 2022-08-08 18:08:00 17.84 kg/m2 Universi ty of [place] [facility] Oxygen saturation in 2022-08-08 18:08:00 99 /min University of Arterial blood by [place] [facility] jacklyn Pulse oximetry Branch Procedures Procedure Date / Time Performing Clinician Source Performed EXTERNAL PROVIDER 2023-01-04 05:01:00 Doctor Unassigned, No Univ ersity of [place] RECORDS Name Medical Branch AUTHORIZATION TO RELEASE 2022-12-25 05:01:00 Doctor Unassigned, No [facility] TO [facility] Name Medical Branch Encounters Start End Encounter Admission Attending Care Care Encounter Source Date/Time Date/Time Type Type Clinicians Facility Department ID 2023-02-12 2023-02-12 Outpatient R [facility] [id number] Univers 16:30:00 16:34:34 ZEESHAN ity of [facility] 2023-02-12 2023-02-12 Office [facility] [id number] Univers 16:30:00 16:34:34 Visit Zeeshan QUICK [id number] it [place] of [id number] [id number] [facility] [address] [place] 2023-01-04 2023-01-04 Orders Doctor DEMPSEY [id number] Univers 00:00:00 00:00:00 Only Unassigned, WALDEMAR [id number] ity of [place] [facility] [id number] [place] [id number] [place] [address] Branch 2022-12-28 2022-12-28 Telephone [facility] [id number] Univers 00:00:00 00:00:00 Zeeshan QUICK [id number] it [id number] [id number] [facility] [address] Branch 2022-12-25 2022-12-25 Outpatient R [facility] [id number] Univers 10:15:00 11:26:41 ZEESHAN ity [facility] 2022-12-25 2022-12-25 Office [facility] [id number] Univers 10:15:00 11:26:41 Visit Zeeshan QUICK [id number] it [id number] [id number] [facility] [address] Branch 2022-12-25 2022-12-25 Orders Doctor KE [id number] Univers 00:00:00 00:00:00 Only Unassigned, WALDEMAR [id number] ity of [place] [facility] [id number] [place] [id number] [place] [address] Branch 2022-08-08 2022-08-08 [facility] [id number] Univers 13:00:00 14:05:45 ZEESHAN negron [facility] 2022-08-08 2022-08-08 Office Jennifer [facility] [id number] Univers 13:00:00 14:05:45 Visit Zeeshan STRONG [id number] i radha [facility] [id number] [facility] PROFESSIO [id number] Vt dical NAL [address] Branch BUILDING Results This patient has no known results.
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
[2023-02-13 09:37] VITALS: BP 124/83; TEMP 98; O2SAT 98
== END 2023-02-13 09:29 | disposition home or self-care (01) ==
LOC: ER 07:49
DX: S16.1XXA Strain of muscle, fascia and tendon at neck level, initial encounter (principal); R51.9 Headache, unspecified; M79.672 Pain in left foot; V43.62XA Car passenger injured in collision with other type car in traffic accident, initial encounter
CPT/HCPCS: 99284